=== PATIENT | female | born 1975 | race Caucasian/White ===

== ENCOUNTER 2019-06-12 11:12 | Emergency (ER) | payer SELFPAY ==
[~2019-06-12] VITALS: Ht 154.9 cm; Wt 86.0 kg
[2019-06-12] MEDS ORDERED: PENICILLN VK500 MG PO (11:35)
[2019-06-12 11:41] VITALS: BP 159/98
== END 2019-06-12 11:47 | disposition home or self-care (01) | DRG 158 ==
LOC: ED 11:12
DX: K04.7 Periapical abscess without sinus (principal); M84.68XA Pathological fracture in other disease, other site, initial encounter for fracture; K02.9 Dental caries, unspecified; F17.210 Nicotine dependence, cigarettes, uncomplicated